=== PATIENT | male | born 1935 | race Native Hawaiian/Other Pacific Islander ===

== ENCOUNTER 2022-03-13 13:31 | Outpatient (CLI) | payer OTHER, MEDICARE ==
[2022-03-13 14:20] LABS: PLATELET COUNT 434 K/uL (142-355)
[2022-03-13 14:32] LABS: POTASSIUM 4.3 mmol/L (3.6-5.2)
== END 2022-03-13 21:21 | disposition home or self-care (01) ==
LOC: LAB 13:31
PROVIDERS: ATTEND Physician Assistant
DX: D64.89 Other specified anemias (principal); R53.83 Other fatigue
CPT/HCPCS: 80053; 83735; 85027